=== PATIENT | female | born 1965 | race African-American/Black ===

== ENCOUNTER 2017-11-04 19:21 | Observation (INO) | payer OTHER ==
[~2017-11-04] VITALS: Ht 154.9 cm; Wt 56.3 kg
[~2017-11-04 19:21] MED LIST: CALCIUM PO; FISH OIL 1,2001 EAC4 PO; LUTEIN20 MG PO; METHIMAZOLE PO; MULTIPLE VITAM1 EACH PO; VITAMIN D32000 UNIT PO; [UNRECOGNIZED DRUG - OTHER] PO; [UNRECOGNIZED DRUG - OTHER] PO
[2017-11-04 19:48] LABS: HEMATOCRIT 40.4 % (36.0-46.0); HEMOGLOBIN 13.4 G/DL (11.9-15.5); MCH 29.8 PG (29.0-34.0); MCHC 33.2 G/DL (30.0-36.0); MCV 89.8 FL (83-99); PLATELET COUNT 312 K/uL (156-360); RBC DIS.WIDTH-CV 13.7 % (11.8-14.6); RBC DIS.WIDTH-SD 45.2 % (39-53); WHITE BLOOD COUNT 7.8 K/uL (4.1-10.2)
[2017-11-04 19:59] LABS: CHLORIDE 105 mEq/L (99-109); POTASSIUM 3.9 mEq/L (3.7-5.4); SODIUM 139 mEq/L (136-147)
[2017-11-04 20:01] LABS: GLUCOSE 97 mg/dL (70-99)
[2017-11-04 20:05] LABS: CREATININE 0.9 mg/dL (0.6-1.3)
[2017-11-04 20:06] LABS: UREA NITROGEN (BUN) 14 mg/dL (9-23)
[2017-11-04 20:09] LABS: GFR ESTIMATE (CALCULATED) > 59 mL/min/
[2017-11-04 20:11] LABS: TROP-I INTERPRETATION NEGATIVE; TROPONIN-I < 0.01 ng/mL (0.0-0.30)
[2017-11-04] MEDS ORDERED: VITAMIN D31000 UNI2 PO (21:52)
[2017-11-04] MEDS ORDERED: ASCORBIC ACID500 M3 PO (21:53)
[2017-11-04] MEDS ORDERED: TAPAZOLE10 MG PO (21:53)
[2017-11-04] MEDS ORDERED: CALCIUM 500 MG1 EACH PO (21:54)
[2017-11-04] MEDS ORDERED: LAXATIVE DIETA500 MG PO (21:54)
[2017-11-04] MEDS ORDERED: RESTASIS MULTI5.5 ML BOTH EYES (21:55)
[2017-11-04] MEDS ORDERED: GLUTATHIONE PO (21:56)
[2017-11-04 22:16] LABS: THYROTROPIN (TSH) 0.23 MIU/L (0.4-5.5)
[2017-11-05 00:21] VITALS: BP 131/67
[2017-11-05 02:25] LABS: TROP-I INTERPRETATION NEGATIVE; TROPONIN-I < 0.01 ng/mL (0.0-0.30)
[2017-11-05 03:50] VITALS: BP 98/55
[2017-11-05 07:30] VITALS: BP 120/64
[2017-11-05 08:21] LABS: HDL CHOLESTEROL 58 MG/DL (Desirable>=50); LDL CHOLESTEROL 136 mg/dL (Desirable<100); NON-HDL CHOLESTEROL 157 mg/dL (Desirable<160); TOTAL CHOLESTEROL 215 mg/dL (Desirable<200); TRIGLYCERIDES 103 MG/DL (Normal: <150)
[2017-11-05 08:52] LABS: TROP-I INTERPRETATION NEGATIVE; TROPONIN-I < 0.01 ng/mL (0.0-0.30)
[2017-11-05] MEDS ORDERED: ASPIR-LOW81 MG PO (11:58)
[2017-11-05] MEDS ORDERED: NITROSTAT0.4 MG SL (11:58)
[2017-11-05] MEDS ORDERED: ATORVASTATIN CA40 MG PO (11:59)
[2017-11-05 12:17] VITALS: BP 103/59
== END 2017-11-05 13:29 | disposition home or self-care (01) ==
LOC: EME 19:21 → 5WEST 22:24 → EDOF 22:24 → ENRESERV 22:28 → 5WEST 11-05 00:11
PROVIDERS: Physician Assistant Medical
DX: R07.9 Chest pain, unspecified (principal); E05.00 Thyrotoxicosis with diffuse goiter without thyrotoxic crisis or storm; K21.9 Gastro-esophageal reflux disease without esophagitis; R68.84 Jaw pain; R06.02 Shortness of breath; J45.909 Unspecified asthma, uncomplicated; Z80.3 Family history of malignant neoplasm of breast; Z82.0 Family history of epilepsy and other diseases of the nervous system; Z88.5 Allergy status to narcotic agent; Z88.2 Allergy status to sulfonamides; Z88.6 Allergy status to analgesic agent; Z79.82 Long term (current) use of aspirin
CPT/HCPCS: 71046; 80048; 80061; 84439; 84443; 84480 90; 84484; 85027; 93005; G0378; J1650